=== PATIENT | female | born 1965 | race African-American/Black ===

== ENCOUNTER 2022-01-05 17:48 | Emergency (ER) | payer BC ==
[~2022-01-05] VITALS: Ht 172.7 cm; Wt 110.7 kg
[2022-01-05] MEDS ORDERED: KETOROLAC TROMETHAMINE 30 MG/ML VIAL IV STA (19:45)
[2022-01-05] MEDS ORDERED: KETOROLAC TROMETHAMINE 30 MG/ML VIAL ONE (19:55)
[2022-01-05] MEDS ORDERED: PREDNISONE 20 MG TAB PO ONE (20:30)
[2022-01-05] MEDS ORDERED: PREDNISONE20 MG PO (20:49)
[2022-01-05 21:00] VITALS: BP 126/60
[2022-01-05] MEDS ORDERED: PREDNISONE 20 MG TAB ONE (21:07)
== END 2022-01-05 21:00 | disposition home or self-care (01) ==
LOC: FSED 17:59
DX: R07.9 Chest pain, unspecified (principal); M54.12 Radiculopathy, cervical region; Z88.1 Allergy status to other antibiotic agents; Z88.2 Allergy status to sulfonamides
CPT/HCPCS: 71046; 80053; 82553; 84484; 93005; 96374; 99283; J1885; J7512

== ENCOUNTER 2022-05-27 14:09 | Emergency (ER) | payer BC ==
[~2022-05-27] VITALS: Ht 172.7 cm; Wt 110.7 kg
[~2022-05-27 14:09] MED LIST: PREDNISONE20 MG PO
[2022-05-27 15:07] LABS: BASOPHILS % 0.4 % (0.0-1.0); HEMOGLOBIN 13.1 g/dL (12.0-16.0); LYMPHOCYTES % 36.1 % (18.0-39.1); MEAN CORPUSCULAR HEMOGLOBIN 28.4 pg (28-32); MEAN CORPUSCULAR VOLUME 88.9 fL (81-99); MONOCYTES # (AUTO) 0.4 (0.2-0.8); MONOCYTES % 15.7 % (4.4-11.3); NEUTROPHILS # (AUTO) 1.3 (2.1-6.9); NEUTROPHILS % 47.4 % (38.7-80.0); PLATELET COUNT 191 x10e3/uL (140-360); RED BLOOD COUNT 4.61 x10e6/uL (3.6-5.1); RED CELL DISTRIBUTION WIDTH 13.9 % (11.7-14.4)
[2022-05-27 15:26] LABS: ALBUMIN 3.2 g/dL (3.5-5.0); ALBUMIN/GLOBULIN RATIO 0.9 (0.8-2.0); ANION GAP 16.8 mmol/L (8-16); CALCIUM 8.9 mg/dL (8.4-10.2); CREATININE, SERUM 0.64 mg/dL (0.57-1.11); POTASSIUM 3.8 mmol/L (3.5-5.1)
[2022-05-27 15:32] LABS: CREATINE KINASE MB 0.8 ng/mL (0-5.0)
[2022-05-27 16:48] LABS: LYMPHOCYTES % (MANUAL) 28 % (19-48); MONOCYTES % (MANUAL) 17 % (3.4-9.0); NEUTROPHILS % (MANUAL) 50 % (40-74); PLATELET MORPHOLOGY COMMENT NORMAL; RBC MORPHOLOGY COMMENT NORMAL
[2022-05-27 16:49] LABS: PLATELET ESTIMATE ADEQUATE
== END 2022-05-27 17:14 | disposition home or self-care (01) ==
LOC: ER 14:35
DX: R10.13 Epigastric pain (principal); R11.0 Nausea; R50.9 Fever, unspecified
CPT/HCPCS: 36415; 71046; 80053; 82550; 82553; 83690; 84484; 85025; 93005; 99283